=== PATIENT | female | born 1970 | race Caucasian/White ===

== ENCOUNTER 2024-12-22 08:06 | Outpatient (AMB) | payer OTHER, SELFPAY ==
--- NOTE | 2024-12-22 08:06 | A.OFFPC_ITS ---
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 Pt has PE last September. 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 Pt reports chronic GERD symptoms up to 2 x a week and has been taking omeprazole with good relief. She denies odynophagia dysphagia. Pt had sleeve gastrectomy 4 yrs ago and lost 80 lbs after the surgery but gained 40 lbs back. Patient is planning to start using up for nutritional support use before the surgery and afterwards. [facility] Surgical History (Updated 12/22/24 @ 13:10 by Corina Villar MD) Hx of tubal ligation Hx of appendectomy Family History (Updated 12/22/24 @ 08:43 by Corina Villar MD) Father COPD (chronic obstructive pulmonary disease) Mother COPD (chronic obstructive pulmonary disease) Brother Substance use disorder Diabetes Mental health disorder Bipolar disorder Social History (Updated 12/22/24 @ 08:33 by Corina Villar MD) Household Members Other:: , 3 adult children, Housing: Condominium Patient Tobacco Use Status: Never used Tobacco e-Cigarette/Vaping Use: Never Used service: No Current occupational status: employed Cognitive needs: No Hearing needs: No Vision needs: Yes Questionnaire PHQ-9 Over the last 2 weeks, how often have you been bothered by any of the following problems? 1. Little interest or pleasure in doing things: not at all 2. Feeling down, depressed, or hopeless: not at all 3. Trouble falling or staying asleep, or sleeping too much: not at all 4. Feeling tired or having little energy: several days 5. Poor appetite or overeating: not at all 6. Feeling bad about yourself - or that you are a failure or have let yourself or your family down: not at all 7. Trouble concentrating on things, such as reading the newspaper or watching television: not at all 8. Moving or speaking so slowly that other people could have noticed. Or the opposite - being so fidgety or restless that you have been moving around a lot more than usual: not at all 9. Thoughts that you would be better off or of hurting yourself in some way: not at all Total score: 1 Depression Screening Interpretation: Negative Depression Screening Done: Yes 84924 - PHQ-9 Billing: Yes Source: Developed by Drs. Flaco Moreira, Susanne Coates, Mark Nation and colleagues, with an educational magdalena from [employer]. Thrive Questionnaire Date Thrive assessed: 12/22/24 I am a: Patient What is your living situation today?: I have a steady place to live Within the past 12 months, did the food you bought not last and you didn't have the money to get more?: Never true Within the past 12 months, did you worry whether your food would run out before you got money to buy more?: Never true Do you have trouble paying for medicines?: No Do you have trouble getting transportation to medical appointments?: No Do you have trouble paying your heating and electricity bill?: No Do you have trouble taking care of your child, family member or friend?: No Do you have trouble with day-to-day activities such as bathing, preparing meals, shopping, managing finances, etc.?: No Are you currently unemployed and looking for a job?: No Are you interested in more education?: No Please select the resources that you would like help with: None THRIVE Score: 0 AUDIT C Alcohol Use Questionnaire (AUDIT-C) 1. How often do you have a drink containing alcohol?: Monthly or less 2. How many drinks containing alcohol do you have on a typical day when you are drinking?: 1 or 2 3. How often do you have six or more drinks on one occasion?: Never Total Score: 1 AUSTIN-7 AMB Questionnaire AUSTIN-7 Date AUSTIN - 7 assessed: 12/22/24 Feeling nervous, anxious, or on edge: 0 = Not at all Not being able to stop or control worryin = Not at all Worrying too much about different things: 0 = Not at all Trouble relaxin = Not at all Becoming easily annoyed or irritable: 0 = Not at all Feeling afraid as if something awful might happen: 0 = Not at all Source: Developed by Drs. Flaco Moreira, Susanne Coates, Mark Nation and colleagues, with an educational magdalena from [employer]. AUSTIN-7 Assessment Billing AUSTIN-7 Assessment Tool: AUSTIN-7 Assessment 24718 Review of Systems Const All systems reviewed & are unremarkable except as noted in HPI and below Reports no additional complaints Eyes Reports no additional complaints ENT Reports no additional complaints Card Reports no additional complaints Resp Reports no additional complaints GI Reports no additional complaints Reports no additional complaints Physical exam (Primary Care) Vital Signs: Last Vital Signs Temp 98.2 F 12/22/24 08:09 Pulse 78 12/22/24 08:09 Resp 18 12/22/24 08:09 BP 110/66 12/22/24 08:09 Pulse Ox 98 12/22/24 08:09 Oxygen Delivery Method Room Air 12/22/24 08:09 BMI result Body Mass Index 35.4 Tobacco/Smoking Status: Tobacco use Status Tobacco use date assessed 12/22/24 12/22/24 08:17 Patient Tobacco Use Status Never used Tobacco 12/22/24 08:33 e-Cigarette/Vaping Use Never Used 12/22/24 08:33 PHQ-9: PHQ-9 Score PHQ-9: Total score 1 12/22/24 08:28 Depression Screening Interpretation: Negative Thrive Assessment: Date of Thrive Assessment Date Thrive assessed 12/22/24 12/22/24 08:17 Const General: no acute distress HENMT Head: Yes normal to inspection Ears: hearing grossly normal bilaterally Face and sinus: Yes normal facial exam Throat: Yes posterior oropharynx normal Neck Neck: Yes no lymphadenopathy and Yes supple Resp Effort & Inspection: normal respiratory effort Auscultation: clear to auscultation bilaterally Cardio Rhythm: regular rhythm Heart sounds: S1 normal heart sound present and S2 normal heart sound present GI Inspection: Yes normal to inspection Palpation (GI): Soft to palpation Percussion: Yes normal to percussion Auscultation: normal bowel sounds Coding Level of Care Code New Pt Level 4 (20213) Diagnoses Normal pelvic exam Z01.419 Varicose veins of both lower extremities I83.93 Gall stone K80.20 Overweight E66.3 Hx of colonoscopy Z98.890 Additional Codes AUSTIN-7 Assessment Billing - AUSTIN-7 Assessment Tool: AUSTIN-7 Assessment 41220 ([id number]) PHQ-9 - 72954 - PHQ-9 Billing: Yes ([id number]) Assessment & Plan Assessment & Plan (1) Normal pelvic exam: Comment: Dr. 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 (2) Varicose veins of both lower extremities: Comment: s/p vein stripping 1996 Code(s): I83.93 - Asymptomatic varicose veins of bilateral lower extremities Category: Medical Plan: Patient was advised to wear compression stockings elevate lower extremities when sitting (3) Gall stone: Comment: 2019 US, intermittent right upper quadrant abdominal pain after eating fatty foods but not for the last few years Code(s): K80.20 - Calculus of gallbladder without cholecystitis without obstruction Category: Medical Plan: Obtain abdominal ultrasound to evaluate for cholelithiasis (4) Overweight: Code(s): E66.3 - Overweight Category: Medical Plan: Decreasing caloric intake increasing physical activity discussed with the patient. She will start using nutritional up to monitor her caloric intake. Patient will follow-up in 2 months (5) Hx of colonoscopy: Comment: 10/2020 negative, pt will get a report from [facility] Code(s): Z98.890 - Other specified postprocedural states Category: Surgical Plan: Patient will get a report from [facility] Orders: Orders Vitamin B12 and Folate Today K80.20 - Calculus of gallbladder without cholecystitis without obstruction, Z00.00 - Encounter for general adult medical examination without abnormal findings, Z90.3 - Acquired absence of stomach [part of] Vitamin B1 Today K80.20 - Calculus of gallbladder without cholecystitis without obstruction, Z00.00 - Encounter for general adult medical examination without abnormal findings, Z90.3 - Acquired absence of stomach [part of] Vitamin D 25-OH Total Today K80.20 - Calculus of gallbladder without cholecystitis without obstruction, Z00.00 - Encounter for general adult medical examination without abnormal findings, Z90.3 - Acquired absence of stomach [part of] IRON PROFILE Today K80.20 - Calculus of gallbladder without cholecystitis without obstruction, Z00.00 - Encounter for general adult medical examination without abnormal findings, Z90.3 - Acquired absence of stomach [part of] TSH reflex Free T4 Today E66.3 - Overweight US abdomen limited Today K80.20 - Calculus of gallbladder without cholecystitis without obstruction, Z00.00 - Encounter for general adult medical examination without abnormal findings, Z90.3 - Acquired absence of stomach [part of]
[2024-12-22 08:09] VITALS: BP 110/66; PULSE 78; RESP 18; TEMP 36.8; O2SAT 98; BMI 35.4
== END 2024-12-22 08:59 | disposition home or self-care (01) ==
PROVIDERS: PCP Internal Medicine; Visit Provider Internal Medicine
DX: Z01.419 Encounter for gynecological examination (general) (routine) without abnormal findings (principal); I83.93 Asymptomatic varicose veins of bilateral lower extremities; K80.20 Calculus of gallbladder without cholecystitis without obstruction; E66.3 Overweight; Z98.890 Other specified postprocedural states

== ENCOUNTER 2024-12-22 08:06 | Outpatient (REF) | payer OTHER, SELFPAY ==
[2024-12-22 11:19] LABS: Iron 27 mcg/dL (30-160); Percent Iron Saturation 7 % (15-50); Total Iron Binding Capacity 361 mcg/dL (228-428); Unsaturated Iron Binding 334 ug/dL
[2024-12-22 11:27] LABS: Vitamin D 25-OH Total 36.1 ng/mL (>30)
[2024-12-22 11:43] LABS: Folate > 20.0 ng/mL (> or = 4.0); Vitamin B12 309 pg/mL (200-900)
[2024-12-29 13:58] LABS: Vitamin B1 10 nmol/L (8-30)
== END 2024-12-22 08:07 | disposition home or self-care (01) ==
LOC: HO.HMGCLDS 08:06
PROVIDERS: PCP Internal Medicine; Visit Provider Internal Medicine
DX: K80.20 Calculus of gallbladder without cholecystitis without obstruction (principal); Z90.3 Acquired absence of stomach [part of]; E66.3 Overweight; I83.93 Asymptomatic varicose veins of bilateral lower extremities; Z98.890 Other specified postprocedural states
CPT/HCPCS: 36415; 82306; 82607; 82746; 83540; 84425; 96127

== ENCOUNTER 2025-01-24 10:01 | Outpatient (REF) | payer OTHER, SELFPAY ==
--- NOTE | ~2025-01-24 | US_ITS ---
EXAMINATION: US ABDOMEN LIMITED HISTORY: K80.20 - Calculus of gallbladder without cholecystitis without obstruction TECHNIQUE: Real-time grayscale ultrasound imaging of the right upper quadrant was performed and images were reviewed. COMPARISON: There are no prior studies for comparison. FINDINGS: Liver: The right lobe of the liver measures 13.7 cm in size. The left lobe of the liver measures 10.5 cm in size. The liver demonstrates increased echotexture, consistent with steatosis. No focal mass or intrahepatic biliary ductal dilatation is identified. There is normal hepatopedal flow in the portal vein. Gallbladder and biliary tree: The gallbladder is filled with shadowing calculi. There is no wall thickening or pericholecystic fluid. There is no sonographic Tony sign. The common bile duct is normal in caliber measuring 3 mm. Right Kidney: The right kidney measures 8.9 cm in length. The right kidney is unremarkable, without evidence of masses, hydronephrosis, or calculi. Pancreas: The pancreatic head, neck, and body are unremarkable. The pancreatic tail is obscured by bowel gas. Abdominal aorta and inferior vena cava: The visualized portions of the abdominal aorta and inferior vena cava are normal in caliber. There is no free fluid in the right upper quadrant. US/US abdomen limited IMPRESSION: Hepatic steatosis. Cholelithiasis without evidence of acute cholecystitis. Electronically signed by: Flaco Balderas MD 01/24/2025 10:57 AM EDT
== END 2025-01-24 10:02 | disposition home or self-care (01) ==
LOC: HO.HMGCX 10:01
PROVIDERS: PCP Internal Medicine; Visit Provider Internal Medicine
DX: K80.20 Calculus of gallbladder without cholecystitis without obstruction (principal); Z90.3 Acquired absence of stomach [part of]
CPT/HCPCS: 76705

== ENCOUNTER → 2025-01-24 10:05 | Outpatient (BNV) | payer OTHER, SELFPAY | PROVIDERS: PCP Internal Medicine; Visit Provider Radiology Diagnostic Radiology | DX: K80.20 Calculus of gallbladder without cholecystitis without obstruction (principal); K76.0 Fatty (change of) liver, not elsewhere classified | CPT/HCPCS: 76705 ==

== ENCOUNTER 2025-02-21 10:58 | Outpatient (REF) | payer OTHER, SELFPAY ==
[2025-02-21 15:35] LABS: Creatinine Urine 39.92 mg/dL
== END 2025-02-21 10:59 | disposition home or self-care (01) ==
LOC: HO.LAB 10:58
PROVIDERS: PCP Internal Medicine; Visit Provider Internal Medicine
DX: Z00.00 Encounter for general adult medical examination without abnormal findings (principal); E66.3 Overweight; N39.0 Urinary tract infection, site not specified
CPT/HCPCS: 81003; 82043; 82570; 87086

== ENCOUNTER 2025-02-21 10:58 | Outpatient (AMB) | payer OTHER, SELFPAY ==
[2025-02-21 11:17] VITALS: BP 126/74; PULSE 63; RESP 18; TEMP 36.6; O2SAT 100; BMI 34.7
--- NOTE | 2025-02-21 11:17 | MHC.PC.OV ---
Vital Signs 02/21/25 11:17 Height 5 ft 3 in Weight 196 lb BMI 34.7 BP 126/74 Blood Pressure Location Lt brachial Position Sitting Respiration 18 Pulse 63 Pulse Source Pulse Oximeter Temp 97.8 F Temp Source Oral Pulse Oximetry (%) 100 Oxygen Delivery Method Room Air Intake Visit Reasons: 2 months f/up Intake Note: Pt is here today for 2 months follow up visit. Pt states that she has been having burning when urinating. Allergies No Known Allergies Allergy (Unverified 12/22/24 08:10) Medication List - Last Reconciled 02/21/25 by Corina Villar MD ferrous sulfate 325 mg PO DAILY nitrofurantoin monohyd/m-cryst 100 mg (Macrobid) 100 mg PO Q12H 7 days Tobacco use date assessed: 02/21/25 Dental Screening Dental Screen Date: 12/22/24 HPI 2 months f/up HPI Details Patient presents for the follow-up. She has been trying to lose weight decreasing caloric intake increasing physical activity for over 6 months unsuccessfully. Patient is interested in trying GLP 1 agonist to facilitate weight loss. Patient complains of 3 days of increased urinary frequency dysuria lower abdominal discomfort no fever chills nausea vomiting hematuria. PFSH Surgical History Hx of tubal ligation Hx of appendectomy Family History Father COPD (chronic obstructive pulmonary disease) Mother COPD (chronic obstructive pulmonary disease) Brother Substance use disorder Diabetes Mental health disorder Bipolar disorder Social History Household Members Other:: , 3 adult children, Housing: Condominium Patient Tobacco Use Status: Never used Tobacco e-Cigarette/Vaping Use: Never Used service: No Current occupational status: employed Cognitive needs: No Hearing needs: No Vision needs: Yes Questionnaire Thrive Questionnaire Date Thrive assessed: 12/22/24 I am a: Patient What is your living situation today?: I have a steady place to live Within the past 12 months, did the food you bought not last and you didn't have the money to get more?: Never true Within the past 12 months, did you worry whether your food would run out before you got money to buy more?: Never true Do you have trouble paying for medicines?: No Do you have trouble getting transportation to medical appointments?: No Do you have trouble paying your heating and electricity bill?: No Do you have trouble taking care of your child, family member or friend?: No Do you have trouble with day-to-day activities such as bathing, preparing meals, shopping, managing finances, etc.?: No Are you currently unemployed and looking for a job?: No Are you interested in more education?: No Please select the resources that you would like help with: None Currently or been in a relationship where the following occur: No concerns reported THRIVE Score: 0 AUSTIN-7 AMB Questionnaire AUSTIN-7 Date AUSTIN - 7 assessed: 12/22/24 Source: Developed by Drs. Flaco Moreira, Susanne Coates, Mark Nation and colleagues, with an educational magdalena from [employer]. Review of Systems Const All systems reviewed & are unremarkable except as noted in HPI and below Eyes Reports no additional complaints ENT Reports no additional complaints Card Reports no additional complaints Resp Reports no additional complaints GI Reports no additional complaints Physical exam (Primary Care) Vital Signs: Last Vital Signs Temp 97.8 F 02/21/25 11:17 Pulse 63 02/21/25 11:17 Resp 18 02/21/25 11:17 BP 126/74 02/21/25 11:17 Pulse Ox 100 02/21/25 11:17 Oxygen Delivery Method Room Air 02/21/25 11:17 BMI result Body Mass Index 34.7 Tobacco/Smoking Status: Tobacco use Status Tobacco use date assessed 02/21/25 02/21/25 11:33 Patient Tobacco Use Status Never used Tobacco 02/21/25 11:18 e-Cigarette/Vaping Use Never Used 02/21/25 11:18 Thrive Assessment: Date of Thrive Assessment Date Thrive assessed 12/22/24 02/21/25 11:18 Currently or been in a relationship where the following occur: No concerns reported Const General: no acute distress HENMT Head: Yes normal to inspection Eyes General: appearance normal, both eyes and all related structures Resp Effort & Inspection: normal respiratory effort Auscultation: clear to auscultation bilaterally Cardio Rhythm: regular rhythm Heart sounds: S1 normal heart sound present and S2 normal heart sound present GI Inspection: Yes normal to inspection Palpation (GI): Soft to palpation Percussion: Yes normal to percussion Auscultation: normal bowel sounds General: Yes Bimanual renal exam normal bilaterally and Yes no CVA tenderness Back/Spine/Pelvis Back: no CVA tenderness Results AMB Urinalysis, Automated UA Leukoctes 70 Naveed/uL Last Edit by NAVDEEP Otero on 02/21/25 11:31 UA Nitrite Positive Last Edit by Lula Deluca Angel on 02/21/25 11:31 UA Urobilinogen 0.2 mg/dL Last Edit by Lula Deluca [facility] on 02/21/25 11:31 UA Protein 0 mg/dL Last Edit by Lula Deluca Angel on 02/21/25 11:31 UA pH 6.0 Last Edit by Lula Deluca Angel on 02/21/25 11:31 UA Blood 25 Christoph/uL Last Edit by Lula Deluca Angel on 02/21/25 11:31 UA Specific [place] 1.010 Last Edit by Lula Deluca Angel on 02/21/25 11:31 UA Ketone Negative Last Edit by Lula Deluca Angel on 02/21/25 11:31 UA Bilirubin 0 mg/dL Last Edit by NAVDEEP Otero on 02/21/25 11:31 UA Glucose 0 mg/dL Last Edit by Lula Deluca Angel on 02/21/25 11:31 Results Reviewed Results Reviewed: Laboratory Last Values Urine pH (Auto) 6.0 02/21/25 11:30 Specific [place] (Auto) 1.010 02/21/25 11:30 Urine Protein (Auto) 0 mg/dL 02/21/25 11:30 Glucose (UA)(Auto) 0 mg/dL 02/21/25 11:30 Urine Ketones (Auto) Negative 02/21/25 11:30 Urine Blood (Auto) 25 Christoph/uL 02/21/25 11:30 Urine Nitrite (Auto) Positive 02/21/25 11:30 Urine Bilirubin (Auto) 0 mg/dL 02/21/25 11:30 Urine Urobilinogen (Auto) 0.2 mg/dL 02/21/25 11:30 Leukocyte Esterase (Auto) 70 Naveed/uL 02/21/25 11:30 Coding Level of Care Code Est Pt Level 4 (76676) Diagnoses Overweight E66.3 UTI (urinary tract infection) N39.0 Assessment & Plan Assessment & Plan (1) Overweight: Comment: Status post sleeve gastrectomy 09/2021, patient lost 80 lb but regained 50 lbs back Code(s): E66.3 - Overweight Category: Medical Plan: Patient was advised to continue decreasing caloric intake increasing physical activity and will check with the insurance coverage for GLP 1 agonist. Patient will follow-up in 2 months to monitor weight loss (2) UTI (urinary tract infection): Code(s): N39.0 - Urinary tract infection, site not specified Category: Medical Plan: Macrobid is prescribed and supportive care discussed with the patient Orders: Orders Comprehensive [place]. Panel Fast Today E66.3 - Overweight, Z00.00 - Encounter for general adult medical examination without abnormal findings Complete Blood Count Auto Diff Today E66.3 - Overweight, Z00.00 - Encounter for general adult medical examination without abnormal findings Hemoglobin A1c Today E66.3 - Overweight, Z00.00 - Encounter for general adult medical examination without abnormal findings TSH reflex Free T4 Today E66.3 - Overweight, Z00.00 - Encounter for general adult medical examination without abnormal findings IRON PROFILE Today Z00.00 - Encounter for general adult medical examination without abnormal findings Vitamin B12 and Folate Today Z00.00 - Encounter for general adult medical examination without abnormal findings AMB Urinalysis Automated Today Z13.9 - Encounter for screening, unspecified Lipid Panel Today E66.3 - Overweight, Z00.00 - Encounter for general adult medical examination without abnormal findings Microalbumin, Random (w Creat) Today E66.3 - Overweight, Z00.00 - Encounter for general adult medical examination without abnormal findings Referrals Gastroenterology Referral Z00.00 - Encounter for general adult medical examination without abnormal findings Medications: New nitrofurantoin monohyd/m-cryst 100 mg (Macrobid) must administer with a meal/food 100 mg PO Q12H 7 days 14 caps 0RF
== END 2025-02-21 12:13 | disposition home or self-care (01) ==
LOC: HO.HMCC 10:59
PROVIDERS: PCP Internal Medicine; Visit Provider Internal Medicine
DX: E66.3 Overweight (principal); N39.0 Urinary tract infection, site not specified; Z13.9 Encounter for screening, unspecified

== ENCOUNTER 2025-03-02 07:45 | Outpatient (REF) | payer OTHER, SELFPAY ==
[2025-03-02 10:12] LABS: MANUAL DIFF FLAG NO
[2025-03-02 10:18] LABS: Basophils Percent Auto 0.8 % (0-2); Eosinophils Absolute Auto 0.2 X10*3/uL (0.0-0.4); Eosinophils Percent Auto 3.8 % (0-4); Hematocrit 37.9 % (37.0-47.0); Hemoglobin 12.2 g/dl (12.0-16.0); Imm Gran Abs Auto 0.01 X10*3/uL (0.00-0.03); Imm Gran Pct Auto 0.2 % (0.0-0.4); Lymphocytes Absolute Auto 2.2 X10*3/uL (1.2-4.9); Lymphocytes Percent Auto 45.1 % (20-40); Mean Corpuscular HGB Conc 32.2 g/dl (31.0-35.0); Mean Corpuscular Hemoglobin 26.6 pg (27.0-33.0); Mean Corpuscular Volume 82.8 fL (80.0-98.0); Mean Platelet Volume 11.1 fL (9.4-12.3); Monocytes Absolute Auto 0.4 X10*3/uL (0.1-1.2); Neutrophils Absolute Auto 2.1 x10*3/uL (2.0-8.3); Neutrophils Percent Auto 43.1 % (45-73); Platelet Count 303 X10*3/uL (160-400); Red Blood Count 4.58 X10*6/uL (4.20-5.50); Red Cell Distribution Width 18.9 % (11.0-16.0)
[2025-03-02 10:26] LABS: Estimated Average Glucose 108 mg/dL; Hemoglobin A1C 114.0896 umol/L; Hemoglobin A1c % 5.4 % (<6.0); Total Hemoglobin (HGBA1C) 3247.1032 umol/L
[2025-03-02 10:50] LABS: Alanine Aminotransferase 16 U/L (0-31); Albumin Level 3.8 g/dL (3.5-5.0); Alkaline Phosphatase 62 U/L (39-117); Anion Gap 8 (12-20); Aspartate Amino Transferase 22 U/L (5-31); Bilirubin Total 0.5 mg/dL (0.0-1.0); Blood Urea Nitrogen 12 mg/dL (9-16); Calcium 9.1 mg/dL (8.4-10.2); Carbon Dioxide 27 mmol/L (22-29); Chloride 109 mmol/L (96-108); Cholesterol 174 mg/dL (<200); Estimated Glomerular Filt Rate > 60; Glucose Fasting 91 mg/dL (60-99); HDL Cholesterol 54 mg/dL (>40); Iron 36 mcg/dL (30-160); LDL Cholesterol Calculated 101 mg/dL (<100); Percent Iron Saturation 13 % (15-50); Potassium 3.7 mmol/L (3.3-5.1); Sodium 140 mmol/L (135-145); Total Iron Binding Capacity 269 mcg/dL (228-428); Total Protein 6.6 g/dL (6.5-8.0); Triglycerides 95 mg/dL (<150); Unsaturated Iron Binding 233 ug/dL
[2025-03-02 11:07] LABS: Folate > 20.0 ng/mL (> or = 4.0); Vitamin B12 362 pg/mL (200-900)
== END 2025-03-02 07:46 | disposition home or self-care (01) ==
LOC: HO.HMGCLDS 07:45
PROVIDERS: PCP Internal Medicine; Visit Provider Internal Medicine
DX: Z00.00 Encounter for general adult medical examination without abnormal findings (principal); E66.3 Overweight; Z13.1 Encounter for screening for diabetes mellitus; Z13.29 Encounter for screening for other suspected endocrine disorder
CPT/HCPCS: 36415; 80053; 80061; 82607; 82746; 83036; 83540; 84443; 85025